=== PATIENT | female | born 1970 | race Caucasian/White ===

== ENCOUNTER → 2023-07-30 08:34 | Outpatient (REF) | payer OTHER, SELFPAY | LOC: RAD 08:34 | PROVIDERS: ATTENDING PHYSICIAN Nurse Practitioner Adult Health | DX: R97.0 Elevated carcinoembryonic antigen [CEA] (principal); R10.11 Right upper quadrant pain | CPT/HCPCS: 76700 ==

== ENCOUNTER → 2023-08-09 14:49 | Outpatient (REF) | payer OTHER, SELFPAY | LOC: HWRAD 14:49 | PROVIDERS: ATTENDING PHYSICIAN Nurse Practitioner Adult Health | DX: R10.11 Right upper quadrant pain (principal); R07.9 Chest pain, unspecified; R97.0 Elevated carcinoembryonic antigen [CEA]; M54.42 Lumbago with sciatica, left side; R87.610 Atypical squamous cells of undetermined significance on cytologic smear of cervix (ASC-US) | CPT/HCPCS: 71260; 74177; Q9967 ==

== ENCOUNTER → 2023-08-14 14:33 | Outpatient (REF) | payer OTHER, SELFPAY | LOC: HWRAD 14:33 | PROVIDERS: ATTENDING PHYSICIAN Obstetrics & Gynecology; FAMILY PHYSICIAN Nurse Practitioner Adult Health | DX: R97.0 Elevated carcinoembryonic antigen [CEA] (principal) | CPT/HCPCS: 76830; 76856 ==

== ENCOUNTER → 2023-08-15 08:28 | Outpatient (REF) | payer OTHER, SELFPAY | LOC: HWRAD 08:28 | PROVIDERS: ATTENDING PHYSICIAN Nurse Practitioner Adult Health | DX: R97.0 Elevated carcinoembryonic antigen [CEA] (principal) | CPT/HCPCS: 76536 ==

== ENCOUNTER → 2023-09-02 06:33 | Day surgery (SDC) | payer OTHER, SELFPAY | LOC: GI 06:33 | PROVIDERS: ATTENDING PHYSICIAN Surgery; FAMILY PHYSICIAN Nurse Practitioner Adult Health | DX: Z12.11 Encounter for screening for malignant neoplasm of colon (principal); K64.8 Other hemorrhoids; D12.0 Benign neoplasm of cecum; K62.1 Rectal polyp; K63.5 Polyp of colon | CPT/HCPCS: 45385; 45380; 88305 ==

== ENCOUNTER → 2023-10-16 07:43 | Outpatient (REF) | payer OTHER, SELFPAY | LOC: MRI 07:43 | PROVIDERS: ATTENDING PHYSICIAN Orthopaedic Surgery Sports Medicine; FAMILY PHYSICIAN Nurse Practitioner Adult Health | DX: M89.9 Disorder of bone, unspecified (principal) | CPT/HCPCS: 72197; A9575 ==

== ENCOUNTER → 2023-11-25 06:41 | Outpatient (REF) | payer OTHER, SELFPAY ==
[2023-11-25 07:04] LABS: % Basophils 0.7 % (0-2); % Eosinophils 1.8 % (0-6); % Immature Granulocytes 0.2 % (0-0.5); % Lymphocytes 23.2 % (20.5-51.1); % Monocytes 7.5 % (1.7-9.3); % Neutrophils 66.6 % (42.2-75.2); Absolute Eosinophils 0.1 10^3/uL (0-0.7); Absolute Lymphocytes 1.1 10^3/uL (1.2-3.4); Absolute Monocytes 0.3 10^3/uL (0.1-0.6); Hematocrit 42.6 % (37.0-47.0); Hemoglobin 14.5 g/dL (12.0-16.0); Mean Corpuscular Hgb 30.3 pg (27.0-31.0); Mean Corpuscular Volume 88.9 fL (81.0-99.0); Mean Platelet Volume 9.2 fL (7.4-10.4); Nucleated Red Blood Cells % 0 %; Platelet Count 277 10^3/uL (130-400); Red Blood Cell Count 4.79 10^6/uL (4.20-5.40); Red Cell Dist. Width 12.9 % (11.5-14.5); White Blood Cell Count 4.6 10^3/uL (4.8-10.8)
[2023-11-25 07:10] LABS: INR 1.09; PT 13.9 Sec (11.4-14.6)
[2023-11-25 07:20] VITALS: BP 127/86; BP_SYST 94
[2023-11-25 07:22] VITALS: BMI 39.7
[2023-11-25 10:16] VITALS: BP 120/81
[2023-11-25 10:30] VITALS: BP 111/78
[2023-11-25 10:45] VITALS: BP 123/82
== END ==
LOC: RADI 06:41
PROVIDERS: ATTENDING PHYSICIAN Physician Assistant; FAMILY PHYSICIAN Nurse Practitioner Adult Health
DX: M89.8X8 Other specified disorders of bone, other site (principal); Z01.812 Encounter for preprocedural laboratory examination; Z01.818 Encounter for other preprocedural examination; Z53.8 Procedure and treatment not carried out for other reasons
CPT/HCPCS: 20225; 36415; 77012; 85025; 85610; 99152; 99153

== ENCOUNTER → 2024-02-11 12:11 | Outpatient (REF) | payer OTHER, SELFPAY | LOC: HWWDC 12:11 | PROVIDERS: ATTENDING PHYSICIAN Obstetrics & Gynecology; FAMILY PHYSICIAN Nurse Practitioner Adult Health | DX: Z12.31 Encounter for screening mammogram for malignant neoplasm of breast (principal) | CPT/HCPCS: 77063; 77067 ==

== ENCOUNTER → 2024-04-08 06:44 | Outpatient (REF) | payer OTHER, SELFPAY | LOC: RCS 06:44 | PROVIDERS: ATTENDING PHYSICIAN Student in an Organized Health Care Education/Training Program; FAMILY PHYSICIAN Nurse Practitioner Adult Health | DX: I10 Essential (primary) hypertension (principal); R42 Dizziness and giddiness; R00.2 Palpitations; E66.9 Obesity, unspecified | CPT/HCPCS: 78452; 93017; A9500 ==

== ENCOUNTER → 2025-02-18 13:58 | Outpatient (REF) | payer OTHER, SELFPAY | LOC: HWWDC 13:58 | PROVIDERS: ATTENDING PHYSICIAN Nurse Practitioner Adult Health | DX: Z12.31 Encounter for screening mammogram for malignant neoplasm of breast (principal) | CPT/HCPCS: 77063; 77067 ==